=== PATIENT | male | born 1990 ===

== ENCOUNTER 2017-06-04 09:26 | Emergency (ER) | payer OTHER ==
[2017-06-04 09:34] VITALS: TEMP 97; O2SAT 100
[2017-06-04 09:35] VITALS: BMI 19.5
[2017-06-04] MEDS ORDERED: Sodium Chloride 0.9% 1,000 ML IV STA (10:01)
--- NOTE | 2017-06-04 10:18 | ED PDOC ---
HPI: Chest Pain Time Seen by Provider: 06/04/17 09:47 Chief Complaint (Nursing): Chest Pain Chief Complaint (Provider): Sharp Chest Pains History Per: Patient History/Exam Limitations: no limitations Onset/Duration Of Symptoms: Days (2-3 months) Current Symptoms Are (Timing): Still Present Quality: Sharp Associated Symptoms: Nausea Additional Complaint(s): Fidel Alanis, a 26 year old mal, presents tot he ED complaining of sharp left sided chest pains and palpitations x2-3 months. The patient states that his father has similar problems. He reports that his symptoms worsen when he is afraid or upset. In addition to these symptoms, the patient states that he is experiencing some groin pain. He reports that when he does heavy lifting he feels not only groin pain but also testicular pain. Denies fever, vomiting but does state that he feels nauseous after he eats. Past Medical History Reviewed: Historical Data, Nursing Documentation, Vital Signs Vital Signs: Last Vital Signs Temp 97 F L 06/04/17 09:33 Pulse 66 06/04/17 10:00 Resp BP 119/70 06/04/17 09:33 Pulse Ox 100 06/04/17 10:23 - Medical History PMH: No Chronic Diseases - Surgical History Surgical History: Appendectomy - Family History Family History: States: Unknown Family Hx - Social History Current smoker - smoking cessation education provided: No Ex-Smoker (has not smoked in the last 12 months): No Alcohol: None Drugs: Denies - Allergies Allergies/Adverse Reactions: Allergies Allergy/AdvReac Type Severity Reaction Status Date / Time No Known Allergies Allergy Verified 06/04/17 09:59 Review of Systems ROS Statement: Except As Marked, All Systems Reviewed And Found Negative Constitutional: Positive for: Other (loss of appetite). Negative for: Fever Cardiovascular: Positive for: Chest Pain (left sided sharp chest pains), Palpitations Gastrointestinal: Positive for: Nausea (nauseous after he eats). Negative for: Vomiting Physical Exam - Reviewed Nursing Documentation Reviewed: Yes - Physical Exam Appears: Positive for: Non-toxic, No Acute Distress Head Exam: Positive for: ATRAUMATIC, NORMAL INSPECTION, NORMOCEPHALIC Skin: Positive for: Normal Color, Warm, Dry. Negative for: Rash Eye Exam: Positive for: Normal appearance, EOMI, PERRL. Negative for: Nystagmus Neck: Positive for: Normal, Painless ROM, Supple Cardiovascular/Chest: Positive for: Regular Rate, Rhythm, Chest Non Tender. Negative for: Tachycardia Respiratory: Positive for: Normal Breath Sounds. Negative for: Rales, Rhonchi, Wheezing, Respiratory Distress Gastrointestinal/Abdominal: Positive for: Normal Exam, Bowel Sounds, Soft, Tenderness (epigastric tenderness) Male Genital Exam: Positive for: other (testicles are normal and equal b/l). Negative for: no hernia Back: Positive for: Normal Inspection. Negative for: L CVA Tenderness, R CVA Tenderness Extremity: Positive for: Normal ROM. Negative for: Tenderness, Pedal Edema, Deformity, Swelling Neurologic/Psych: Positive for: Alert, Oriented, Gait - Laboratory Results Result Diagrams: 06/04/17 10:20 06/04/17 10:20 - ECG O2 Sat by Pulse Oximetry: 100 (RA) Pulse Ox Interpretation: Normal Medical Decision Making Medical Decision Makin Initial Impression: 26 year old female presenting with left sided chest pain, palpitations and groin pain Initial plan: * EKG * Basic Metabolic Panel * Udip * CBC * Obstructive Series * NS 1000mls IV 1000mls/hr * Pepcid * Reevaluation Scribe Attestation Documented by Indy Ontiveros acting as a scribe for Donya Olivia MD. Provider Attestation: All medical record entries made by the Scribe were at my direction and personally dictated by me. I have reviewed the chart and agree that the record accurately reflects my personal performance of the history, physical exam, medical decision making, and the department course for this patient. I have also personally directed, reviewed, and agree with the discharge instructions and disposition. Disposition - Clinical Impression Clinical Impression: Atypical chest pain - Patient ED Disposition Is Patient to be Admitted: No Doctor Will See Patient In The: Office Counseled Patient/Family Regarding: Diagnosis, Need For Followup - Disposition Referrals: [facility] [Outside] [facility] [Outside] Disposition: Routine/Home Disposition Time: 11:15 Condition: STABLE Instructions: Chest Pain (ED) Forms: [facility] ([place]) Print Language: [place] - [place] Present On Arrival: None
[2017-06-04 10:28] LABS: BASO % 0.6 % (0.0-2.0); EOS # 0.1 K/uL (0.0-0.7); EOS % 2.2 % (0.0-4.0); HEMATOCRIT 42.9 % (35.0-51.0); LYMPH # 1.6 K/uL (1.0-4.3); LYMPH % 41.5 % (20.0-40.0); MEAN CELL VOLUME 91.2 fl (80.0-94.0); MEAN CORPUSCULAR HEMOGLOBIN 30.8 pg (27.0-31.0); MEAN CORPUSCULAR HGB CONC 33.8 g/dL (33.0-37.0); MEAN PLATELET VOLUME 9.5 fl (7.2-11.7); MONO # 0.2 K/uL (0.0-0.8); MONO % 6.2 % (0.0-10.0); NEUT % 49.5 % (50.0-75.0); NRBC % 0.3 % (0.0-0.0); RED CELL DISTRIBUTION WIDTH 12.9 % (11.5-14.5)
[2017-06-04 10:35] LABS: BLOOD UREA NITROGEN 10 mg/dl (9-20); CALCIUM 9.4 mg/dL (8.4-10.2); CARBON DIOXIDE 28 mmol/L (22-30); CHLORIDE 102 mmol/L (98-107); GFR AFRICAN-AMERICAN > 60; GLUCOSE,RANDOM 93 mg/dL (75-110); POTASSIUM 3.8 MMOL/L (3.6-5.0); SODIUM 144 mmol/l (132-148)
--- NOTE | 2017-06-04 10:48 | RAD ---
PROCEDURE: Radiographs of the chest and abdomen (obstructive series) HISTORY: abdominal pain COMPARISON: No prior. TECHNIQUE: AP radiograph of the chest, with upright and supine radiographs of the abdomen. FINDINGS: CHEST: Lungs: Clear. Cardiovascular: Normal size heart. No pulmonary vascular congestion. Pleura: No pleural fluid. No pneumothorax. Other findings: None. ABDOMEN AND PELVIS: Bowel: Unremarkable bowel gas pattern. No evidence of mechanical obstruction. Free air: None. Bones: Unremarkable. Other findings: None. IMPRESSION: Unremarkable radiographs of chest and abdomen. No evidence of mechanical bowel obstruction.
[2017-06-04 12:13] VITALS: BP 121/90; PULSE 61; RESP 16
--- NOTE | 2017-06-05 09:35 | CARD ---
APPROVED REPORT EKG Measurement Heart [id number] <Conclusion> Normal sinus rhythm Normal ECG
== END 2017-06-04 12:13 | disposition home or self-care (01) ==
LOC: H.ER 09:26
DX: R07.89 Other chest pain (principal)
CPT/HCPCS: 74022; 80048; 85025; 93005; 96361; 96374; 99283; J7040